=== PATIENT | male | born 1960 | race Caucasian/White ===

== ENCOUNTER → 2017-04-11 | Outpatient (CLI) | payer BC ==
[~2017-04-11] VITALS: Ht 188 cm; Wt 133.3 kg
[~2017-04-11] MED LIST: ASPIRIN81 M2 PO; CHANTIX1 MG PO; LISINOPRIL20 MG PO; METFORMIN HCL1000 MG PO; MULTIPLE VITAM1 EACH PO; SYNTHROID75 MCG PO; TRICOR145 MG PO; VITAMIN D31000 UNIT PO; ZANTAC150 MG PO
[2017-04-11 09:28] LABS: POINT-OF-CARE METER ID UU14107333
[2017-04-11 09:45] LABS: ANION GAP 8 MEQ/L (2-14); CHLORIDE 106 MEQ/L (99-109); POTASSIUM 4.2 MEQ/L (3.7-5.4); SAMPLE HEMOLYSIS CHECK 0; SAMPLE ICTERIC CHECK 0; SAMPLE LIPEMIA CHECK 0; SODIUM 140 MEQ/L (136-147)
[2017-04-11 09:50] LABS: GFR ESTIMATE (CALCULATED) > 59 mL/min/; GLUCOSE 115 mg/dL (70-99); UREA NITROGEN (BUN) 16 mg/dL (9-23)
== END | disposition home or self-care (01) ==
LOC: AMB 08:38
PROVIDERS: Internal Medicine Gastroenterology
DX: K22.70 Barrett's esophagus without dysplasia (principal); K25.9 Gastric ulcer, unspecified as acute or chronic, without hemorrhage or perforation; K29.80 Duodenitis without bleeding; R79.89 Other specified abnormal findings of blood chemistry; E78.5 Hyperlipidemia, unspecified; K76.0 Fatty (change of) liver, not elsewhere classified; K21.9 Gastro-esophageal reflux disease without esophagitis; I10 Essential (primary) hypertension; E03.9 Hypothyroidism, unspecified; G47.33 Obstructive sleep apnea (adult) (pediatric); E11.40 Type 2 diabetes mellitus with diabetic neuropathy, unspecified; E55.9 Vitamin D deficiency, unspecified; Z82.49 Family history of ischemic heart disease and other diseases of the circulatory system; Z87.891 Personal history of nicotine dependence; Z79.82 Long term (current) use of aspirin; Z88.2 Allergy status to sulfonamides; Z88.8 Allergy status to other drugs, medicaments and biological substances
CPT/HCPCS: 80048; 82948; 88305; 88342 TC; 93005